=== PATIENT | male | born 1950 | race Caucasian/White ===

== ENCOUNTER → 2019-11-16 | Outpatient (CLI) | payer OTHER, MEDICARE | END | disposition home or self-care (01) | LOC: SHCH 09:39 | PROVIDERS: ATTEND Internal Medicine Cardiovascular Disease | DX: I51.7 Cardiomegaly (principal) | CPT/HCPCS: 93306 ==

== ENCOUNTER → 2019-12-13 | Outpatient (CLI) | payer OTHER, MEDICARE ==
[~2019-12-13] VITALS: Ht 180.3 cm; Wt 59.1 kg
[~2019-12-13] MED LIST: ASPI-1026 PO; ATOR40TA69 PO; BIOT10004 PO; PUMPKIN SEED OIL; SODIUM CHLORIDE 0.9% 1000ML 1,000 ML IV SCH; VIT E; [UNRECOGNIZED DRUG - OTHER]; [UNRECOGNIZED DRUG - OTHER]
[2019-12-13 12:36] LABS: BASOPHILS % (AUTO) 0.9 % (0.0-5.0); EOSINOPHILS % (AUTO) 3.6 % (0.0-8.0); HEMATOCRIT 45.3 % (42-54); LYMPHOCYTES % (AUTO) 17.6 % (21.0-51.0); MEAN CORPUSCULAR HEMOGLOBIN 30.3 pg (27.0-33.0); MEAN CORPUSCULAR HGB CONC 33.3 g/dL (32.0-36.0); MONOCYTES % (AUTO) 8.8 % (3.0-13.0); NEUTROPHILS % (AUTO) 68.9 % (40.0-77.0); PLATELET COUNT (AUTO) 186 K/uL (130-400); RED BLOOD CELL COUNT(AUTO) 4.98 MIL/uL (4.50-6.20); WHITE BLOOD COUNT (AUTO) 5.8 K/uL (4.8-10.8)
[2019-12-13 12:47] LABS: APPEARANCE,URINE Clear (CLEAR); BILIRUBIN,URINE Negative (NEGATIVE); COLOR,URINE Yellow (YELLOW); GLUCOSE, URINE (UA) Negative (NEGATIVE); KETONES,URINE Negative (NEGATIVE); LEUKOCYTE ESTERASE ,URINE Negative (NEGATIVE); NITRATE,URINE Negative (NEGATIVE); OCCULT BLOOD,URINE Negative (NEGATIVE); PH,URINE 5.5 (5.0-8.0); PROTEIN,URINE Negative (NEGATIVE); UROBILINOGEN,URINE 0.2 mg/dL (0.2-1.0)
[2019-12-13 12:49] LABS: INR 0.98 (0.85-1.15); PARTIAL THROMBOPLASTIN TIME 26.3 SEC (26.3-35.5); PROTHROMBIN TIME 10.3 SEC (9.6-11.6)
[2019-12-13 12:52] LABS: POTASSIUM 3.9 mmol/L (3.5-5.1)
[2019-12-13 13:08] VITALS: BP 160/68
--- NOTE | 2019-12-14 08:46 | NUR ---
PROCEDURE PT ON PHONE. STATES HE USES [facility] AND THEY REQUIRE 3 DAYS NOTIFICATION ON TRANSPORTATION. 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 CALLED AND INFORMED LIZETTE WELLS OF ISSUE. STATES IT IS THE PTS DECISION. CALLED OFFICE AND SPOKE TO MONTRELL. INFORMED OF SITUATION. SHE WILL INFORM DR. TONA SLAUGHTER AND WILL HAVE HIS TRANSPORTATION COORDINATED FOR NEXT PROCEDURE DATE.
== END | disposition home or self-care (01) ==
LOC: DAH 10:00 → EDSTATUS 01-05 11:00
PROVIDERS: ATTEND Internal Medicine Cardiovascular Disease
DX: Z01.818 Encounter for other preprocedural examination (principal); I73.9 Peripheral vascular disease, unspecified; I25.6 Silent myocardial ischemia; F17.210 Nicotine dependence, cigarettes, uncomplicated; Z79.899 Other long term (current) drug therapy; Z72.89 Other problems related to lifestyle; Z83.3 Family history of diabetes mellitus; Z79.01 Long term (current) use of anticoagulants
CPT/HCPCS: 36415; 71045; 80048; 81003; 85025; 85610; 85730; 93005

== ENCOUNTER → 2020-07-04 | Outpatient (CLI) | payer OTHER, MEDICARE ==
[~2020-07-04] MED LIST changes: +ASCO500C18 PO; +BETA CAROTENE PO; +PALMETTO PO; -SODIUM CHLORIDE 0.9% 1000ML 1,000 ML IV SCH
== END | disposition home or self-care (01) ==
LOC: RAH 13:10
PROVIDERS: ATTEND Internal Medicine Cardiovascular Disease
DX: R60.9 Edema, unspecified (principal)
CPT/HCPCS: 93971

== ENCOUNTER → 2020-11-27 | Outpatient (CLI) | payer OTHER, MEDICARE ==
[~2020-11-27] MED LIST changes: -ASCO500C18 PO; -ASPI-1026 PO; -ATOR40TA69 PO; +ATOR40TA71 PO; -BIOT10004 PO; +BIOTIN PO; +FERR325T29 PO; +FOLIC ACID PO; +METO25TA6 PO; -PALMETTO PO; +PANT40TA PO; -PUMPKIN SEED OIL; +PUMPKIN SEED PO; +SACU1TAB PO; +SAW PALMETTO PO; -VIT E; +VIT E PO; -[UNRECOGNIZED DRUG - OTHER]; -[UNRECOGNIZED DRUG - OTHER]; +[UNRECOGNIZED DRUG - OTHER] PO
== END | disposition home or self-care (01) ==
LOC: SHCH 15:03
PROVIDERS: ATTEND Internal Medicine Cardiovascular Disease
DX: I25.2 Old myocardial infarction (principal)
CPT/HCPCS: 93306; 93356

== ENCOUNTER 2021-08-20 06:05 | Day surgery (SDC) | payer OTHER, MEDICARE ==
[~2021-08-20] VITALS: Ht 180.3 cm; Wt 59.2 kg
[2021-08-20] VITALS (10 sets, daily range): BP systolic 102–125; BP diastolic 52–87
[2021-08-20] MEDS ORDERED: SACU1TAB PO (07:41)
[2021-08-20] MEDS ORDERED: 0.9%NACL 1000ML 1,000 ML IV ONE (08:13)
[2021-08-20 08:37] LABS: HEMATOCRIT 39.5 % (42-54); MEAN CORPUSCULAR HEMOGLOBIN 28.5 pg (27.0-33.0); MEAN CORPUSCULAR HGB CONC 33.2 g/dL (32.0-36.0); MEAN CORPUSCULAR VOLUME 86.1 fL (79-99); PLATELET COUNT (AUTO) 188 K/uL (130-400); RED BLOOD CELL COUNT(AUTO) 4.59 MIL/uL (4.50-6.20); RED CELL DISTRIBUTION WIDTH 13.1 % (11.0-15.5); WHITE BLOOD COUNT (AUTO) 4.9 K/uL (4.8-10.8)
[2021-08-20 08:58] LABS: EOSINOPHILS % (MANUAL) 2 % (1-6); LYMPHOCYTES % (MANUAL) 27 % (22-44); MAN.DIFF COMMENT-IMPRESSION MANUAL DIFFERENTIAL; MONOCYTES % (MANUAL) 6 % (2-9); PLATELET MORPHOLOGY COMMENT ADEQUATE; SEGMENTED NEUTROPHILS % 65 % (40-70)
[2021-08-20] MEDS ORDERED: PROPOFOL 10 MG/ML 20ML VIAL IV ONE (09:09)
[2021-08-20] MEDS ORDERED: LIDOCAINE HCL 1% 20 ML VIAL ONE (09:09)
[2021-08-20] MEDS ORDERED: PHENYLEPHRINE HCL 10 MG/ML 1ML VIAL IV ONE (09:10)
== END 2021-08-20 10:20 | disposition home or self-care (01) ==
LOC: DAH 06:05 → ENDO 06:05
PROVIDERS: ATTEND Student in an Organized Health Care Education/Training Program
DX: Z08 Encounter for follow-up examination after completed treatment for malignant neoplasm (principal); Z20.822 Contact with and (suspected) exposure to COVID-19; K63.5 Polyp of colon; K64.9 Unspecified hemorrhoids; K57.30 Diverticulosis of large intestine without perforation or abscess without bleeding; I25.10 Atherosclerotic heart disease of native coronary artery without angina pectoris; I25.2 Old myocardial infarction; I11.0 Hypertensive heart disease with heart failure; I50.9 Heart failure, unspecified; I73.9 Peripheral vascular disease, unspecified; E78.5 Hyperlipidemia, unspecified; Z98.890 Other specified postprocedural states; Z95.1 Presence of aortocoronary bypass graft; Z87.891 Personal history of nicotine dependence; Z85.828 Personal history of other malignant neoplasm of skin; Z85.038 Personal history of other malignant neoplasm of large intestine
CPT/HCPCS: 36415; 45380; 45381; 85025; 88305; 93005; A4215 ×2; A4221; A4222; A4223; A4606; A4620; A4663; J2370; J2704; J7030